=== PATIENT | male | born 2000 | race African-American/Black ===

== ENCOUNTER → 2021-01-09 | Outpatient (CLI) | payer MEDICAID ==
--- NOTE | 2021-01-09 15:48 | KCIC ---
Exam Date: 01/09/2021 2:50 PM MRI LEFT LOWER EXTREMITY JOINT WITHOUT Indication: Reason: Generalized Lt knee pain, no specific injury. / Spl. Instructions: / History: TECHNIQUE: Routine multiplanar MR imaging of the knee was performed without contrast. FINDINGS: The medial and lateral menisci are intact and within normal limits for age. The ACL is intact but demonstrates slightly abnormal signal consistent with mucoid degeneration. The posterior cruciate ligament, medial collateral ligament, and lateral collateral ligament complex are intact. Patellofemoral extensor mechanism and popliteus tendon are within normal limits. There is focal full-thickness chondral loss along the anterior aspect of the lateral tibial plateau w ith mild subchondral degenerative marrow signal. Cartilage in the medial and patellofemoral compartme nts is intact. Bone marrow demonstrates benign signal on all sequences. No acute fracture is seen. Physiologic joint fluid is present. There is no popliteal cyst. IMPRESSION: Focal full-thickness chondral loss in the lateral compartment. 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 Intact menisci. Electronically signed by: Malcolm Ybarra MD (01/09/2021 3:46 PM) [id number]
== END ==
LOC: KCIC MRI 14:41
PROVIDERS: ATTEND Physician Assistant
DX: M17.12 Unilateral primary osteoarthritis, left knee (principal); M25.462 Effusion, left knee; M23.92 Unspecified internal derangement of left knee
CPT/HCPCS: 73721